=== PATIENT | male | born 1980 | race Two or more races ===

== ENCOUNTER 2019-08-21 01:28 | Emergency (ER) | payer OTHER ==
[~2019-08-21] VITALS: Ht 177.8 cm; Wt 82.0 kg
[2019-08-21 03:55] VITALS: BP 147/81
== END 2019-08-21 04:39 | disposition home or self-care (01) ==
LOC: ER 01:28
DX: S70.00XA Contusion of unspecified hip, initial encounter (principal); S30.810A Abrasion of lower back and pelvis, initial encounter; M54.2 Cervicalgia; V29.88XA Motorcycle rider (driver) (passenger) injured in other specified transport accidents, initial encounter; Y93.89 Activity, other specified; Y92.89 Other specified places as the place of occurrence of the external cause; Y99.8 Other external cause status
CPT/HCPCS: 71250; 74176; 99285

== ENCOUNTER 2022-02-13 20:46 | Emergency (ER) | payer SELFPAY ==
[~2022-02-13] VITALS: Ht 175.3 cm; Wt 93.0 kg
[2022-02-13 21:03] VITALS: BP 165/114
[2022-02-15] MEDS ORDERED: CEPH500C2 MT (08:24)
== END 2022-02-14 03:42 | disposition left against medical advice (07) ==
LOC: ER 20:46
DX: Z53.21 Procedure and treatment not carried out due to patient leaving prior to being seen by health care provider (principal)

== ENCOUNTER 2022-02-15 04:36 | Emergency (ER) | payer MEDICAID ==
[~2022-02-15] VITALS: Ht 175.3 cm; Wt 96.0 kg
[2022-02-15] MEDS ORDERED: TETANUS AND DIPHTHERIA TOX/PF 0.5ML SYR (ADULT) IM ONE (07:15)
[2022-02-15] MEDS ORDERED: KETOROLAC 60MG/2ML VIAL IM ONE (07:15)
[2022-02-15] MEDS ORDERED: CEPH500C2 MT (08:24)
[2022-02-15 08:33] VITALS: BP 162/105
== END 2022-02-15 08:44 | disposition home or self-care (01) ==
LOC: ER 04:36
DX: L03.113 Cellulitis of right upper limb (principal)
CPT/HCPCS: 73200; 90471; 90714; 96372; 99284; J1885

== ENCOUNTER 2022-06-21 18:30 | Emergency (ER) | payer MEDICAID ==
[~2022-06-21] VITALS: Ht 175.3 cm; Wt 91.0 kg
[~2022-06-21 18:30] MED LIST: CEPH500C2 MT
[2022-06-21 18:38] VITALS: BP 152/100
[2022-06-21] MEDS ORDERED: ACETAMINOPHEN 325MG TABLET PO STA (18:47)
[2022-06-21] MEDS ORDERED: SODIUM CHLORIDE 0.9% 1,000 ML IV ONE (19:00)
[2022-06-21 19:30] LABS: HEMATOCRIT. 49.4 % (42.0-52.0); HEMOGLOBIN. 16.6 g/dL (14.0-18.0); MEAN CORPUSCULAR HEMOGLOBIN 30.1 pg (28.0-32.0); MEAN CORPUSCULAR VOLUME 89.6 fL (80.0-94.0); MEAN PLATELET VOLUME 7.2 fl (7.4-10.4); PLATELET 400 x1000/uL (130-400); RED BLOOD CELL COUNT 5.51 mill/uL (4.7-6.1)
[2022-06-21 19:40] LABS: CHLORIDE 103 mEq/L (98-107)
[2022-06-21 20:25] LABS: PLATELET ESTIMATE NORMAL
[2022-06-21 22:49] LABS: CLARITY URINE CLEAR (CLEAR); COLOR URINE YELLOW (YELLOW); KETONES URINE TRACE (NEGATIVE); LEUKOCYTE ESTERASE URINE NEGATIVE (NEGATIVE); NITRITE URINE NEGATIVE (NEGATIVE); OCCULT BLOOD URINE TRACE (NEGATIVE); PH URINE 6.5 (4.5-8.0); PROTEIN URINE TRACE (NEGATIVE)
[2022-06-21 23:09] LABS: *AMPHETAMINES SCREEN URINE PRESUMTIVE POSITIVE (NEGATIVE); *BARBITURATES SCREEN URINE NEGATIVE (NEGATIVE); *BENZODIAZEPINES SCREEN URINE NEGATIVE (NEGATIVE); *COCAINE SCREEN URINE NEGATIVE (NEGATIVE); CANNABINOID URINE SCREEN NEGATIVE (NEGATIVE); METHADONE URINE SCREEN NEGATIVE (NEGATIVE); OPIATES URINE SCREEN NEGATIVE (NEGATIVE); PHENCYCLIDINE URINE SCREEN NEGATIVE (NEGATIVE)
== END 2022-06-22 00:08 | disposition home or self-care (01) ==
LOC: ER 18:30
DX: T43.621A Poisoning by amphetamines, accidental (unintentional), initial encounter (principal); R10.32 Left lower quadrant pain; Y92.018 Other place in single-family (private) house as the place of occurrence of the external cause
CPT/HCPCS: 36415; 71045; 74176; 80053; 80305; 81003; 83605; 83690; 85025; 87040; 93005; 96360; 99285; J7030; Z7610

== ENCOUNTER 2022-11-03 17:58 | Emergency (ER) | payer MEDICAID ==
[~2022-11-03] VITALS: Ht 167.6 cm; Wt 79.0 kg
[2022-11-03 18:01] VITALS: O2SAT 98
[2022-11-03 18:45] VITALS: BP 153/111; PULSE 125; RESP 20
[2022-11-03] MEDS ORDERED: ACETAMINOPHEN 325MG TABLET PO ONE (18:45)
[2022-11-03] MEDS ORDERED: CYCLOBENZAPRINE 10MG TABLET PO ONE (18:45)
[2022-11-03] MEDS ORDERED: KETOROLAC 15MG/ML VIAL IM ONE (18:45)
[2022-11-03 18:47] LABS: BASOPHILS % 0.7 % (0.0-2.0); EOSINOPHILS % 2.3 % (0.0-5.0); HEMATOCRIT. 43.9 % (42.0-52.0); HEMOGLOBIN. 14.8 g/dL (14.0-18.0); MEAN CORPUSCULAR VOLUME 89.2 fL (80.0-94.0); MEAN PLATELET VOLUME 6.9 fl (7.4-10.4); MONOCYTES % 8.7 % (2.0-8.0); NEUTROPHILS % 68.3 % (40.0-76.0); PLATELET 411 x1000/uL (130-400); RED BLOOD CELL COUNT 4.93 mill/uL (4.7-6.1); RED CELL DISTRIBUTION WIDTH 14.2 % (11.6-14.6)
[2022-11-03 19:01] LABS: CHLORIDE 103 mEq/L (98-107)
[2022-11-03 19:33] VITALS: TEMP 98.2
[2022-11-03 20:21] LABS: CLARITY URINE CLOUDY (CLEAR); COLOR URINE YELLOW (YELLOW); KETONES URINE NEGATIVE (NEGATIVE); LEUKOCYTE ESTERASE URINE 1+ (NEGATIVE); NITRITE URINE NEGATIVE (NEGATIVE); OCCULT BLOOD URINE TRACE (NEGATIVE); PH URINE 5.5 (4.5-8.0); PROTEIN URINE NEGATIVE (NEGATIVE); SPECIFIC GRAVITY URINE 1.023 (1.005-1.030); UROBILINOGEN URINE 0.2 E.U./dL (0.2-1.0)
[2022-11-03] MEDS ORDERED: METH-653 MT (20:50)
[2022-11-03] MEDS ORDERED: IBUP-2029 MT (20:50)
== END 2022-11-03 21:13 | disposition home or self-care (01) ==
LOC: ER 17:58
DX: M54.50 Low back pain, unspecified (principal)
CPT/HCPCS: 99283; 80053; 81003; 85025; 36415; 96372; J1885

== ENCOUNTER 2023-06-20 01:45 | Emergency (ER) | payer MEDICAID ==
[~2023-06-20] VITALS: Ht 167.6 cm; Wt 84.0 kg
[~2023-06-20 01:45] MED LIST changes: +IBUP-2029 MT; +METH-653 MT
[2023-06-20 03:18] VITALS: O2SAT 98
[2023-06-20 10:04] VITALS: BP 178/124; PULSE 99; RESP 17; TEMP 97.6
[2023-06-20] MEDS: LIDOCAINE HCL/PF 1% 10 MG/ML 5ML VIAL INFIL ONE (10:15)
[2023-06-20] MEDS: BACITRACIN ZINC OINT UDPKT TOP ONE (10:15)
[2023-06-20] MEDS: TETANUS, DIPHTHERIA, PERTUSSIS VAC/PF 0.5ML (>10YR OLD) IM ONE (10:15)
== END 2023-06-20 11:42 | disposition home or self-care (01) ==
LOC: ER 01:45
DX: S01.511A Laceration without foreign body of lip, initial encounter (principal)
CPT/HCPCS: 90715; 12011; 90471; 99283; J3490; Z7610 ×4

== ENCOUNTER 2023-09-19 03:19 | Emergency (ER) | payer SELFPAY ==
[2023-09-19 03:46] VITALS: PULSE 100; RESP 16
== END 2023-09-19 06:14 | disposition left against medical advice (07) ==
LOC: ER 03:19
DX: M79.604 Pain in right leg (principal); Z53.21 Procedure and treatment not carried out due to patient leaving prior to being seen by health care provider